=== PATIENT | female | born 1995 | race Caucasian/White ===

== ENCOUNTER 2021-04-12 09:32 | Inpatient (IN) ==
[2021-04-12] MEDS ORDERED: cefTRIAXone 1,000 MG in Water for inj. (sterile) 10 ML IVP ONE (09:49)
[2021-04-12] MEDS ORDERED: Azithromycin 500 MG in 0.9 % Sodium Chloride 250 ML IVPB ONE (09:49)
[2021-04-12] MEDS ORDERED: Isovue-370 500 ML BOTTLE IVP ONE (09:50)
[2021-04-12 09:57] LABS: Basophils % 0.3 %; Hematocrit 47.9 % (35.3-44.9); Hemoglobin 15.7 g/dL (11.5-15.4); Immature Granulocytes % 0.8 % (0-4); Lymphocytes # 1.1 K/mcL (0.6-4.6); Lymphocytes % 8.7 %; Mean Corpuscular HGB Conc 32.8 g/dL (31.6-35.5); Mean Corpuscular Volume 91.4 fL (83.0-100.0); Mean Platelet Volume 10.2 fL (9.4-12.4); Monocytes # 1.1 K/mcL (0.0-1.3); Monocytes % 8.4 %; Neutrophils # 10.2 K/mcL (1.6-8.9); Platelet Count 284 K/mcL (140-400); Red Blood Count 5.24 M/mcL (3.82-4.97); Red Cell Distribution Width 12.1 % (11.5-14.5); Segmented Neutrophils % 81.8 %; White Blood Count 12.4 K/mcL (4.3-11.1)
[2021-04-12] MEDS: 0.9 % Sodium Chloride 1,000 ML IVC SCH ×4 (09:57→19:55)
[2021-04-12 10:04] LABS: INR 1.2; Prothrombin Time 13.3 Seconds (9.4-12.1)
[2021-04-12 10:07] LABS: Activated Partial Thrombo Time 33.8 Seconds (26.0-36.0)
[2021-04-12] MEDS ORDERED: Ipratropium/Albuterol Neb 3 ML IH ONE (10:13)
[2021-04-12 10:14] LABS: Alanine Aminotransferase 35 Units/L (7-52); Albumin 4.6 g/dL (3.5-5.7); Albumin/Globulin Ratio 1.2 (1.1-2.2); Alkaline Phosphatase 67 Units/L (34-104); Aspartate Amino Transferase 18 Units/L (13-39); BUN/Creatinine Ratio 19 (6-26); Bilirubin,Direct 0.1 mg/dL (0.0-0.2); Bilirubin,Indirect 0.3 mg/dL (0.0-1.0); Bilirubin,Total 0.4 mg/dL (0.3-1.0); Blood Urea Nitrogen 13 mg/dL (6-20); Calcium 9.9 mg/dL (8.6-10.3); Carbon Dioxide 27 mEq/L (23-29); Chloride 101 mEq/L (98-107); Globulin 3.7 g/dL (2.4-3.5); Glucose 240 mg/dL (70-105); Magnesium 1.7 mg/dL (1.6-2.6); Osmolality,Calculated 292 (280-300); Phosphorous 3.1 mg/dL (2.7-4.5); Potassium 3.8 mEq/L (3.5-5.1); Sodium 137 mEq/L (136-145); Total Protein 8.3 g/dL (6.4-8.9); Troponin I < 0.03 ng/mL (< 0.04); eGFR For African Americans > 60 (> 60); eGFR For Non-African Americans > 60 (> 60)
[2021-04-12 10:38] LABS: Bilirubin,Urine Negative (Negative); Blood,Urine Negative (Negative); Clarity,Urine Clear (Clear); Color,Urine Yellow (Yellow); Glucose,Urine (UA) 70 mg/dL (Normal); Ketones,Urine Trace mg/dL (Negative); Leukocyte Esterase,Urine Negative (Negative); Mucus,Urine Few per lpf (None-Few); Nitrite,Urine Negative (Negative); Protein,Urine 100 mg/dL (Neg-Trace); RBC,Urine 0-3 per hpf (0-3); Specific Gravity,Urine > 1.030 (1.010-1.025); Squamous Epithelial Cell,Urine Moderate per hpf (None-Few); Urobilinogen,Urine Normal (Normal); WBC,Urine 0-3 per hpf (0-3)
[2021-04-12 10:54] LABS: Influenza A PCR Negative (Negative); Influenza B PCR Negative (Negative); Resp. Syncytial Virus PCR Positive (Negative)
[2021-04-12 10:55] LABS: SARS-CoV-2 by PCR (In House) Negative (Negative)
[2021-04-12] MEDS ORDERED: Ibuprofen 600 MG TABLET PO ONE (11:42)
[2021-04-12] MEDS ORDERED: Albuterol 2.5 MG/3 ML NEBULIZER IH ONE (11:43)
[2021-04-12] MEDS ORDERED: Naloxone 0.4 MG/ML INJ IVP PRN (14:01)
[2021-04-12] MEDS ORDERED: Albuterol 2.5 MG/3 ML NEBULIZER IH PRN (14:02)
[2021-04-12] MEDS ORDERED: Ipratropium/Albuterol Neb 3 ML IH SCH (16:00)
[2021-04-12] MEDS: methylPREDNISolone 125 MG/2 ML VIAL IVP SCH ×2 (17:03→23:37)
[2021-04-12] MEDS ORDERED: *HR* Dextrose 50 % in Water (Syg) 50 ML SYRINGE IVP PRN (17:33)
[2021-04-12] MEDS ORDERED: Dextrose Gel 15 GM/37.5 ML TUBE PO PRN ×2 (17:33)
[2021-04-12] MEDS ORDERED: D5% in Water 1,000 ML IVC PRN (17:33)
[2021-04-12 17:41] LABS: ABG Base Excess 0 mEq/L (-2 to 3); ABG HCO3 27 mEq/L (21-27); ABG Oxygen Saturation 90 % (95-98); ABG PCO2 50 mmHg (35-45); ABG PH 7.33 pH Units (7.32-7.45); ABG PO2 65 mmHg (85-104); ABG TCO2 28 mEq/L (20-26); Blood Gas Modality ST
[2021-04-12] MEDS ORDERED: methylPREDNISolone 125 MG/2 ML VIAL IVP ONE (17:45)
[2021-04-12] MEDS ORDERED: *HR* LORazepam 2 MG/ML VIAL IVP ONE ×2 (18:39→22:03)
[2021-04-12] MEDS: Acetaminophen 325 MG TABLET PO PRN (19:32)
[2021-04-12 20:09] LABS: Adenovirus Not Detected (Not Detect); Bordetella Pertussis Not Detected (Not Detect); Chlamydophila pneumoniae Not Detected (Not Detect); Coronavirus 229E Not Detected (Not Detect); Coronavirus HKU1 Not Detected (Not Detect); Coronavirus NL63 Not Detected (Not Detect); Coronavirus OC43 Not Detected (Not Detect); Human Metapneumovirus Not Detected (Not Detect); Human Rhinovirus/Enterovirus Not Detected (Not Detect); Influenza A Subtype 2009 H1 Not Detected (Not Detect); Influenza B Not Detected (Not Detect); Mycoplasma pneumoniae Not Detected (Not Detect); Parainfluenza Virus 1 Not Detected (Not Detect); Parainfluenza Virus 2 Not Detected (Not Detect); Parainfluenza Virus 3 Not Detected (Not Detect); Parainfluenza Virus 4 Not Detected (Not Detect); Respiratory Syncytial Virus DETECTED (Not Detect); SARS-CoV-2 Not Detected (Not Detect)
[2021-04-12 20:52] LABS: ABG Base Excess 0 mEq/L (-2 to 3); ABG HCO3 26 mEq/L (21-27); ABG Oxygen Saturation 88 % (95-98); ABG PCO2 44 mmHg (35-45); ABG PH 7.38 pH Units (7.32-7.45); ABG PO2 56 mmHg (85-104); ABG TCO2 27 mEq/L (20-26)
[2021-04-12] MEDS ORDERED: Ipratropium Neb 0.5 MG NEBULIZER ONE (20:53)
[2021-04-12] MEDS: Ipratropium Neb 0.5 MG NEBULIZER IH SCH (20:54)
[2021-04-12] MEDS: Levalbuterol Neb 1.25 MG/3 ML IH SCH (20:54)
[2021-04-12] MEDS: *HR* Enoxaparin 40 MG/0.4 ML SYRINGE SQ SCH (21:49)
[2021-04-12] MEDS: Insulin LISPRO 300 UNITS/3 ML VIAL SUBQ SCH (21:49)
[2021-04-13] MEDS: Levalbuterol Neb 1.25 MG/3 ML IH SCH ×7 (00:07→23:47)
[2021-04-13] MEDS: Ipratropium Neb 0.5 MG NEBULIZER IH SCH ×7 (00:07→23:47)
[2021-04-13] MEDS: 0.9 % Sodium Chloride 1,000 ML IVC SCH ×2 (03:29→12:05)
[2021-04-13 09:27] LABS: Basophils % 0.2 %; Hematocrit 42.8 % (35.3-44.9); Immature Granulocytes % 0.7 % (0-4); Lymphocytes # 1.5 K/mcL (0.6-4.6); Lymphocytes % 10.3 %; Mean Corpuscular Hemoglobin 29.9 pg (28.0-33.3); Mean Corpuscular Volume 93.4 fL (83.0-100.0); Mean Platelet Volume 10.7 fL (9.4-12.4); Monocytes # 0.6 K/mcL (0.0-1.3); Monocytes % 4.1 %; Neutrophils # 12.3 K/mcL (1.6-8.9); Platelet Count 283 K/mcL (140-400); Red Blood Count 4.58 M/mcL (3.82-4.97); Red Cell Distribution Width 12.2 % (11.5-14.5); Segmented Neutrophils % 84.7 %; White Blood Count 14.5 K/mcL (4.3-11.1)
[2021-04-13 09:34] LABS: Hemoglobin 13.7 g/dL (11.5-15.4)
[2021-04-13 09:47] LABS: BUN/Creatinine Ratio 23 (6-26); Blood Urea Nitrogen 13 mg/dL (6-20); Calcium 9.1 mg/dL (8.6-10.3); Carbon Dioxide 26 mEq/L (23-29); Chloride 102 mEq/L (98-107); Glucose 213 mg/dL (70-105); Osmolality,Calculated 288 (280-300); Sodium 136 mEq/L (136-145); eGFR For African Americans > 60 (> 60); eGFR For Non-African Americans > 60 (> 60)
[2021-04-13] MEDS: *HR* Enoxaparin 40 MG/0.4 ML SYRINGE SQ SCH ×2 (10:10→21:19)
[2021-04-13] MEDS: Insulin LISPRO 300 UNITS/3 ML VIAL SUBQ SCH ×4 (10:11→21:20)
[2021-04-13] MEDS: methylPREDNISolone 125 MG/2 ML VIAL IVP SCH ×2 (10:12→15:41)
[2021-04-13] MEDS: Acetaminophen 325 MG TABLET PO PRN ×2 (10:20→21:19)
[2021-04-13] MEDS: lisinopriL 5 MG TABLET PO SCH (15:41)
[2021-04-13] MEDS ORDERED: Insulin DETEMIR 100 UNIT/ML X5UNITS SUBQ SCH (21:00)
[2021-04-14] MEDS: Levalbuterol Neb 1.25 MG/3 ML IH SCH ×5 (03:54→19:55)
[2021-04-14] MEDS: Ipratropium Neb 0.5 MG NEBULIZER IH SCH ×5 (03:54→19:55)
[2021-04-14] MEDS: methylPREDNISolone 125 MG/2 ML VIAL IVP SCH ×2 (05:04→17:21)
[2021-04-14 07:38] LABS: Basophils % 0.2 %; Hematocrit 38.8 % (35.3-44.9); Hemoglobin 12.5 g/dL (11.5-15.4); Immature Granulocytes % 0.8 % (0-4); Lymphocytes # 2.1 K/mcL (0.6-4.6); Mean Corpuscular HGB Conc 32.2 g/dL (31.6-35.5); Mean Corpuscular Hemoglobin 29.8 pg (28.0-33.3); Mean Corpuscular Volume 92.4 fL (83.0-100.0); Mean Platelet Volume 10.6 fL (9.4-12.4); Monocytes # 0.8 K/mcL (0.0-1.3); Monocytes % 4.8 %; Neutrophils # 12.9 K/mcL (1.6-8.9); Platelet Count 271 K/mcL (140-400); Red Cell Distribution Width 11.9 % (11.5-14.5); Segmented Neutrophils % 81.2 %; White Blood Count 15.9 K/mcL (4.3-11.1)
[2021-04-14 07:44] LABS: BUN/Creatinine Ratio 35 (6-26); Blood Urea Nitrogen 18 mg/dL (6-20); Calcium 9.1 mg/dL (8.6-10.3); Carbon Dioxide 28 mEq/L (23-29); Chloride 103 mEq/L (98-107); Glucose 268 mg/dL (70-105); Osmolality,Calculated 295 (280-300); Potassium 4.2 mEq/L (3.5-5.1); Sodium 137 mEq/L (136-145); eGFR For African Americans > 60 (> 60); eGFR For Non-African Americans > 60 (> 60)
[2021-04-14] MEDS: Insulin LISPRO 300 UNITS/3 ML VIAL SUBQ SCH ×4 (08:44→20:29)
[2021-04-14] MEDS: lisinopriL 5 MG TABLET PO SCH (08:45)
[2021-04-14] MEDS: Insulin DETEMIR 100 UNIT/ML X5UNITS SUBQ SCH ×2 (08:45→20:30)
[2021-04-14] MEDS: *HR* Enoxaparin 40 MG/0.4 ML SYRINGE SQ SCH ×2 (08:45→20:30)
[2021-04-15 04:20] VITALS: TEMP 97.6
[2021-04-15] MEDS: Levalbuterol Neb 1.25 MG/3 ML IH SCH ×4 (04:32→10:25)
[2021-04-15] MEDS: Ipratropium Neb 0.5 MG NEBULIZER IH SCH ×4 (04:32→10:25)
[2021-04-15] MEDS: methylPREDNISolone 125 MG/2 ML VIAL IVP SCH (05:39)
[2021-04-15 07:01] VITALS: BP 125/66; PULSE 66
[2021-04-15 07:49] LABS: Hematocrit 39.6 % (35.3-44.9); Hemoglobin 12.9 g/dL (11.5-15.4); Mean Corpuscular HGB Conc 32.6 g/dL (31.6-35.5); Mean Corpuscular Hemoglobin 29.4 pg (28.0-33.3); Mean Corpuscular Volume 90.2 fL (83.0-100.0); Mean Platelet Volume 10.7 fL (9.4-12.4); Platelet Count 307 K/mcL (140-400); Red Blood Count 4.39 M/mcL (3.82-4.97); Red Cell Distribution Width 11.9 % (11.5-14.5); White Blood Count 14.6 K/mcL (4.3-11.1)
[2021-04-15] MEDS: lisinopriL 5 MG TABLET PO SCH (07:51)
[2021-04-15] MEDS: *HR* Enoxaparin 40 MG/0.4 ML SYRINGE SQ SCH (07:51)
[2021-04-15] MEDS: Insulin DETEMIR 100 UNIT/ML X5UNITS SUBQ SCH (07:52)
[2021-04-15] MEDS: Insulin LISPRO 300 UNITS/3 ML VIAL SUBQ SCH (08:11)
[2021-04-15 08:12] LABS: BUN/Creatinine Ratio 34 (6-26); Blood Urea Nitrogen 19 mg/dL (6-20); Calcium 9.3 mg/dL (8.6-10.3); Carbon Dioxide 28 mEq/L (23-29); Chloride 98 mEq/L (98-107); Glucose 321 mg/dL (70-105); Osmolality,Calculated 295 (280-300); Potassium 3.8 mEq/L (3.5-5.1); Sodium 135 mEq/L (136-145); eGFR For African Americans > 60 (> 60); eGFR For Non-African Americans > 60 (> 60)
[2021-04-15] MEDS ORDERED: predniSONE 20 MG TABLET PO SCH (09:00)
[2021-04-15 09:37] LABS: Lymphocytes # 2.9 K/mcL (0.6-4.6); Monocytes # 0.3 K/mcL (0.0-1.3); Neutrophils # 11.4 K/mcL (1.6-8.9)
[2021-04-15 09:38] LABS: Platelet Estimate Normal (Normal); Reactive Lymphocytes Present (Not Present)
[2021-04-15 11:09] VITALS: O2SAT 91
[2021-04-15] MEDS ORDERED: FLU Vac QV 21-22 (6Month+)/PF 0.5 ML SYRINGE IM ONE (11:13)
== END 2021-04-15 12:19 | disposition home or self-care (01) | DRG 720 ==
LOC: EMEROOARM 09:32 → 3NENU 09:32 → SUATTDRO 15:23 → 3NENU 16:42
PROVIDERS: ADMIT Pharmacist; ATTEND Internal Medicine